=== PATIENT | female | born 1995 | race Caucasian/White ===

== ENCOUNTER 2016-10-22 10:15 | Emergency (ER) | payer SELFPAY ==
[~2016-10-22] VITALS: Ht 152.4 cm; Wt 72.6 kg
[2016-10-22 11:08] VITALS: BP 109/62
[2016-10-22] MEDS ORDERED: LIDOCAINE 2% TOPICAL JELLY 30GM TUBE. TP ONE (12:00)
[2016-10-22] MEDS ORDERED: DIPHTH,PERTUSS(ACELL),TET TOX 0.5 ML DISP.SYRIN. VAX IM ONE (12:00)
[2016-10-22 12:07] LABS: NEG OBC UR NEG; POS OBC UR POS
[2016-10-22 12:08] LABS: BILIRUBIN,URINE NEGATIVE (NEG); GLUCOSE,URINE NEGATIVE (NEG); NITRITE,URINE NEGATIVE (NEG); PH,URINE 5.5; PROTEIN,URINE NEGATIVE (NEG-TRACE); UROBILINOGEN,URINE 0.2 mg/dL (0.2 mg/dL)
[2016-10-22 12:21] LABS: BACTERIA,URINE MOD /HPF (0-FEW); RBC,URINE 0 /HPF (0-2); SQUAMOUS EPITHELIAL CELL,UR MOD /LPF
[2016-10-22] MEDS ORDERED: SULF1TAB24 PO (13:01)
--- NOTE | 2016-10-22 13:01 | PHYS DOC ---
Past Medical History Past Medical History: Kidney Infection, Renal Disease Additional Past Medical Histor: ASD, VSD, tricuspid valve repair Past Surgical History: Other Additional Past Surgical Histo: ASD closure, VSD minimized Alcohol Use: Occasionally Drug Use: Marijuana Adult General Chief Complaint Chief Complaint: VAGINAL PROBLEM HPI HPI Patient is a 21 year old female with history of kidney infection presents today with vaginal itching and irritation that began 2 days ago. Patient is also complaining of a bump on the left armpit that she noted 2 days ago. Patient denies any fever. Denies any chance she is . She states she has some dysuria. Denies any concerns for STD. Review of Systems Review of Systems Constitutional:see HPI Eyes: Denies change in visual acuity, redness, or eye pain [] HENT: Denies nasal congestion or sore throat [] Respiratory: Denies cough or shortness of breath [] Cardiovascular: No additional information not addressed in HPI [] GI: see HPI : vaginal irritation Musculoskeletal: Denies back pain or joint pain [] Integument: pump on left armpit. Neurologic: Denies headache, focal weakness or sensory changes [] Endocrine: Denies polyuria or polydipsia [] Current Medications Current Medications Current Medications Medications (Trade) Dose Ordered Sig/Akshat Start Time Stop Time Status Last Admin Dose Admin Diphtheria/ Tetanus/Acell Pertussis (Boostrix) 0.5 ml ONCE ONCE 10/22/16 12:00 10/22/16 12:07 DC 10/22/16 12:29 0.5 ML Lidocaine HCl (Xylocaine 2% Topical 30gm Tube) 1 nehemiah 1X ONCE 10/22/16 12:00 10/22/16 12:07 DC 10/22/16 12:21 1 NEHEMIAH Allergies Allergies Allergies Coded Allergies Type Severity Reaction Last Updated Verified Penicillins Allergy Unknown 11/15/15 No morphine Allergy Unknown 11/15/15 No Physical Exam Physical Exam Constitutional: Well developed, well nourished, no acute distress, non-toxic appearance. [] HENT: Normocephalic, atraumatic, bilateral external ears normal, oropharynx moist, no oral exudates, nose normal. [] Eyes: PERRLA, EOMI, conjunctiva normal, no discharge. [] Neck: Normal range of motion, no tenderness, supple, no stridor. [] Cardiovascular:Heart rate regular rhythm, no murmur [] Lungs & Thorax: Bilateral breath sounds clear to auscultation [] Abdomen: Bowel sounds normal, soft, no tenderness, no masses, no pulsatile masses. [] Pelvic exam External pelvic with trace erythema. there is no masses noted on the external vaginal area, there is trace amount of white vaginal discharge in the vaginal vault. Cervix is closed, no CMT, no adnexal tenderness. Skin: Left armpit with a tiny hole approximately 0.2 x 0.2 cm with slight cellulitis around it consistent with an ingrown hair. Back: No tenderness, no CVA tenderness. [] Extremities: No tenderness, no cyanosis, no clubbing, ROM intact, no edema. [] Neurologic: Alert and oriented X 3, normal motor function, normal sensory function, no focal deficits noted. [] Psychologic: Affect normal, judgement normal, mood normal. [] Current Patient Data Vital Signs Vital Signs Date Time Temp Pulse Resp B/P Pulse Ox O2 Delivery O2 Flow Rate FiO2 10/22/16 11:08 98.6 98 16 97 Room Air 98.6 Lab Values Laboratory Tests Test 10/22/16 11:05 Urine Collection Type Unknown Urine Color Yellow Urine Clarity Clear Urine pH 5.5 Urine Specific [place] 1.025 Urine Protein Negativemg/dL (NEG-TRACE) Urine Glucose (UA) Negativemg/dL (NEG) Urine Ketones (Stick) Negativemg/dL (NEG) Urine Blood Negative (NEG) Urine Nitrite Negative (NEG) Urine Bilirubin Negative (NEG) Urine Urobilinogen Dipstick 0.2mg/dL (0.2 mg/dL) Urine Leukocyte Esterase Small (NEG) Urine RBC 0/HPF (0-2) Urine WBC 5-10/HPF (0-4) Urine Squamous Epithelial Cells Mod/LPF Urine Bacteria Mod/HPF (0-FEW) Urine Mucus Mod/LPF Urine Test Negative (NEG) Microbiology 10/22/16 Wet Prep - Final, Complete EKG EKG [] Radiology/Procedures Radiology/Procedures [] Course & Med Decision Making Course & Med Decision Making Pertinent Labs and Imaging studies reviewed. (See chart for details) Patient is in the ED with an ingrown hair on the left armpit, the area had slight cellulitis, her urine is contaminated. Negative urine hCG. Wet prep is negative for any acute findings. Discharged with instructions to keep the affected areas clean and dry. We did give her lidocaine jell in the ED to apply to the vaginal area as needed for irritation. Follow-up with her own doctor in 1 -2 weeks. Tammy Disclaimer Tammy Disclaimer This electronic medical record was generated, in whole or in part, using a voice recognition dictation system. Departure Departure Impression: Primary Impression: Cellulitis of axilla, left Additional Impressions: Vaginal irritation Ingrown hair Disposition: HOME, SELF-CARE Condition: STABLE Referrals: NO PCP (PCP) Follow-up with your own doctor in one week Patient Instructions: Cellulitis Additional Instructions: You were seen for cellulitis of the left axilla from ingrown hair. Keep the area clean and dry. Complete your antibiotics. Apply the lidocaine gel provided to the vaginal area for irritation. Follow-up with your own doctor in one week. Your test was negative. Scripts Sulfamethoxazole/Trimethoprim (Bactrim Ds Tablet)1 Each Tablet1 Tab PO BID #20 TAB Prov:TELLY HAMM APRN 10/22/16 Problem Qualifiers TELLY HAMM APRN Oct 22, 2016 13:01
== END 2016-10-22 13:09 | disposition home or self-care (01) ==
LOC: ER 10:15
DX: N89.8 Other specified noninflammatory disorders of vagina (principal); L03.112 Cellulitis of left axilla; L67.9 Hair color and hair shaft abnormality, unspecified; Z88.0 Allergy status to penicillin; Z88.6 Allergy status to analgesic agent; F12.10 Cannabis abuse, uncomplicated; R30.0 Dysuria
CPT/HCPCS: 81001; 81025; 87491; 87591; 90471; 90715; 99284; Q0111

== ENCOUNTER 2022-02-10 15:15 | Emergency (ER) | payer SELFPAY ==
[~2022-02-10] VITALS: Ht 152.4 cm; Wt 90.0 kg
[~2022-02-10 15:15] MED LIST: SULF1TAB24 PO
[2022-02-10 16:21] LABS: BASO # 0.1 x10^3/uL (0.0-0.2); BASO % 1 % (0-3); EOS # 0.2 x10^3/uL (0.0-0.7); EOS % 3 % (0-3); HEMOGLOBIN 13.8 g/dL (12.0-15.5); LYMPH # 1.6 x10^3/uL (1.0-4.8); LYMPH % 19 % (24-48); MEAN CORPUSCULAR HEMOGLOBIN 30 pg (25-35); MEAN CORPUSCULAR HGB CONC 34 g/dL (31-37); MEAN CORPUSCULAR VOLUME 89 fL (79-100); MONO # 0.8 x10^3/uL (0.0-1.1); MONO % 10 % (0-9); NEUT # 5.5 x10^3/uL (1.8-7.7); NEUT % 68 % (31-73); PLATELET COUNT 219 x10^3/uL (140-400); RED BLOOD COUNT 4.61 x10^6/uL (3.50-5.40); RED CELL DISTRIBUTION WIDTH 13.2 % (11.5-14.5); WHITE BLOOD COUNT 8.1 x10^3/uL (4.0-11.0)
[2022-02-10 16:35] LABS: CALCIUM 9.2 mg/dL (8.5-10.1); GFR 67.6; POTASSIUM 4.2 mmol/L (3.5-5.1)
[2022-02-10 16:41] LABS: ALBUMIN 3.9 g/dL (3.4-5.0); ALBUMIN/GLOBULIN RATIO 1.1 (1.0-1.7); MAGNESIUM 2.1 mg/dL (1.8-2.4); TOTAL BILIRUBIN 0.3 mg/dL (0.2-1.0); TOTAL PROTEIN 7.5 g/dL (6.4-8.2)
--- NOTE | 2022-02-10 16:46 | RAD ---
EXAMINATION: XR CHEST 1V CLINICAL HISTORY: LE swelling, hx tricuspid replacement. EXAM DATE/TIME: 02/10/2022 4:32 PM COMPARISON: None FINDINGS: Lines, Tubes, and Devices: None. Cardiomediastinal Silhouette: Normal heart size. Prosthetic tricuspid valve. Lungs and Pleura: No evidence of focal airspace consolidation, pleural effusion, or pneumothorax. Bones and Soft Tissues: No acute osseous abnormality. Median sternotomy. IMPRESSION: No evidence of acute cardiopulmonary abnormality. Electronically signed by: Evaristo Myles DO (02/10/2022 4:44 PM) TERRY
[2022-02-10 16:59] LABS: BACTERIA,URINE MANY /HPF (0-FEW); RBC,URINE 0 /HPF (0-2)
--- NOTE | 2022-02-10 17:10 | PHYS DOC ---
Past Medical History Past Medical History: Kidney Infection, Renal Disease Additional Past Medical Histor: ASD, VSD Past Surgical History: Coronary Bypass Surgery Additional Past Surgical Histo: tricupsid valve replacement Smoking Status: Never Smoker Alcohol Use: None Drug Use: Marijuana General Adult EDM: Chief Complaint: LOWER EXTREMITY SWELLING HPI: HPI: Patient is a 26 year old with past medical history of tricuspid valve replacement who presents with lower extremity swelling. Patient reports the swelling has been intermittent over the past 3 days. She reports she has history of congestive heart failure, which was treated with open heart tricuspid valve replacement last year. Since that surgery, she reports she is intermittently short of breath and has intermittent lower extremity swelling. Patient states she was instructed to elevate her lower extremities for at least 50% of the day, but she has not been compliant with this instruction. She reports she was originally placed on a diuretic after surgery, but it was subsequently discontinued by her english teacher. Patient denies fatigue, chest pain, palpitations, shortness of breath, orthopnea. Review of Systems: Review of Systems: Constitutional: Denies fever, chills or generalized weakness Eyes: Denies change in visual acuity, visual field deficits or discharge HENT: Denies ear pain, nasal congestion or sore throat Respiratory: See HPI Cardiovascular: See HPI GI: Denies abdominal pain, nausea, vomiting, bloody stools or diarrhea : Denies dysuria or hematuria Musculoskeletal: Denies back pain or joint pain Integument: Denies rash or other skin lesion Neurologic: Denies headache, focal weakness or sensory changes Heart Score: C/O Chest Pain: No Allergies: Allergies: Allergies Coded Allergies Type Severity Reaction Last Updated Verified NSAIDS (Non-Steroidal Anti-Inflamma Allergy Unknown 02/10/22 Yes Penicillins Allergy Unknown 11/15/15 No acetaminophen Allergy Unknown 02/10/22 Yes fentanyl Allergy Unknown 02/10/22 Yes morphine Allergy Unknown 11/15/15 No Physical Exam: PE: Constitutional: Well developed, well nourished, no acute distress, non-toxic appearance. HENT: Normocephalic, atraumatic, bilateral external ears normal, nose normal. Eyes: EOMI, conjunctiva normal, no discharge. Neck: Normal range of motion, no stridor, no JVD. Cardiovascular: Heart regular rate and rhythm. Lungs & Thorax: Equal thoracic expansion, no increased work of breathing, breath sounds clear to auscultation in all lung guo. Skin: Warm, dry, no erythema, no rash. Extremities: No tenderness, no cyanosis, no clubbing, ROM intact, trace edema bilateral ankles. Neurologic: Alert and oriented x4, normal motor function, normal sensory function, no focal deficits noted. Current Patient Data: Labs: Laboratory Tests Test 02/10/22 16:15 02/10/22 16:40 White Blood Count 8.1 x10^3/uL (4.0-11.0) Red Blood Count 4.61 x10^6/uL (3.50-5.40) Hemoglobin 13.8 g/dL (12.0-15.5) Hematocrit 41.0 % (36.0-47.0) Mean Corpuscular Volume 89 fL (79-100) Mean Corpuscular Hemoglobin 30 pg (25-35) Mean Corpuscular Hemoglobin Concent 34 g/dL (31-37) Red Cell Distribution Width 13.2 % (11.5-14.5) Platelet Count 219 x10^3/uL (140-400) Neutrophils (%) (Auto) 68 % (31-73) Lymphocytes (%) (Auto) 19 % (24-48) Monocytes (%) (Auto) 10 % (0-9) Eosinophils (%) (Auto) 3 % (0-3) Basophils (%) (Auto) 1 % (0-3) Neutrophils # (Auto) 5.5 x10^3/uL (1.8-7.7) Lymphocytes # (Auto) 1.6 x10^3/uL (1.0-4.8) Monocytes # (Auto) 0.8 x10^3/uL (0.0-1.1) Eosinophils # (Auto) 0.2 x10^3/uL (0.0-0.7) Basophils # (Auto) 0.1 x10^3/uL (0.0-0.2) Sodium Level 144 mmol/L (136-145) Potassium Level 4.2 mmol/L (3.5-5.1) Chloride Level 107 mmol/L (98-107) Carbon Dioxide Level 25 mmol/L (21-32) Anion Gap 12 (6-14) Blood Urea Nitrogen 14 mg/dL (7-20) Creatinine 1.0 mg/dL (0.6-1.0) Estimated GFR (Cockcroft-Gault) 67.6 BUN/Creatinine Ratio 14 (6-20) Glucose Level 90 mg/dL (70-99) Calcium Level 9.2 mg/dL (8.5-10.1) Magnesium Level 2.1 mg/dL (1.8-2.4) Total Bilirubin 0.3 mg/dL (0.2-1.0) Aspartate Amino Transf (AST/SGOT) 16 U/L (15-37) Alanine Aminotransferase (ALT/SGPT) 31 U/L (14-59) Alkaline Phosphatase 91 U/L (46-116) Troponin I High Sensitivity 4 ng/L (4-50) CP-Ijq-G-Type Natriuretic Peptide 208 pg/mL (0-124) Total Protein 7.5 g/dL (6.4-8.2) Albumin 3.9 g/dL (3.4-5.0) Albumin/Globulin Ratio 1.1 (1.0-1.7) Urine Collection Type Unknown Urine Color (Auto) Yellow Urine Turbidity Hazy Urine pH (Auto) 5.0 (<5.0-8.0) Urine Specific [place] 1.027 (1.000-1.030) Urine Protein (Auto) Negative mg/dL (Negative) Urine Glucose (Auto)(UA) Negative mg/dL (Negative) Urine Ketones (Auto) Negative mg/dL (Negative) Urine Blood (Auto) Negative (Negative) Urine Nitrite Negative (Negative) Urine Bilirubin (Auto) Negative (Negative) Urine Urobilinogen (Auto) Normal mg/dL (Normal) Urine Leukocyte Esterase (Auto) Moderate (Negative) Urine RBC 0 /HPF (0-2) Urine WBC 5-10 /HPF (0-4) Urine Squamous Epithelial Cells Few /LPF Urine Bacteria Many /HPF (0-FEW) Urine Mucus Mod /LPF Laboratory Tests 02/10/22 16:15 Laboratory Tests 02/10/22 16:15 Vital Signs: Vital Signs Date Time Temp Pulse Resp B/P (MAP) Pulse Ox O2 Delivery O2 Flow Rate FiO2 02/10/22 15:57 98.0 100 20 126/70 (88) 98 98.0 EKG: EKG: EKG Interpreted by Dr. Pearl at 1808: Regular rate and rhythm 92 bpm with no ectopic beats. QT 356 ms/QTc 445 ms. No STEMI. Radiology/Procedures: Radiology/Procedures: PROCEDURE: PORTABLE CHEST 1V EXAMINATION: XR CHEST 1V CLINICAL HISTORY: LE swelling, hx tricuspid replacement. EXAM DATE/TIME: 02/10/2022 4:32 PM COMPARISON: None FINDINGS: Lines, Tubes, and Devices: None. Cardiomediastinal Silhouette: Normal heart size. Prosthetic tricuspid valve. Lungs and Pleura: No evidence of focal airspace consolidation, pleural effusion, or pneumothorax. Bones and Soft Tissues: No acute osseous abnormality. Median sternotomy. IMPRESSION: No evidence of acute cardiopulmonary abnormality. Electronically signed by: Evaristo Myles DO (02/10/2022 4:44 PM) [facility] Course & Med Decision Making: Course & Med Decision Making Pertinent Labs and Imaging studies reviewed. (See chart for details) Patient is a 26-year-old female with lower extremity swelling and a history of tricuspid valve replacement. Work-up today will consist of labs that include BNP, chest x-ray, urinalysis. Work-up thus far unremarkable. And informing patient of these findings, she reports additional intermittent chest pain, which is not active today over the past few days. EKG and troponin were added to work-up, both of which were also unremarkable. Patient does not follow with the english teacher who performed her surgery anymore. She was provided with contact information for the cardiology group here at [facility]. Patient was instructed to adhere to instruction from her prior english teacher to prevent lower extremity swelling. Return precautions were also provided. Patient understands and is agreeable to discharge plan. Tammy Disclaimer: Tammy Disclaimer: This electronic medical record was generated, in whole or in part, using a voice recognition dictation system. Departure Departure Impression: Primary Impression: Swelling of both lower extremities Additional Impression: Hx of tricuspid valve replacement Disposition: HOME / SELF CARE / HOMELESS Condition: STABLE Referrals: NO PCP (PCP) MIKALA VENTURA MD Patient Instructions: Edema, [id number] Additional Instructions: EMERGENCY DEPARTMENT GENERAL DISCHARGE INSTRUCTIONS Thank you for coming to [facility] Emergency Department (ED) today and trusting us with you care. We trust that you had a positive experience in our Emergency Department. If you wish to speak to the department management, you may call the director at . YOUR FOLLOW UP INSTRUCTIONS ARE FOLLOWS: 1. Follow up with your primary care doctor. If you do not have a primary doctor, please ask for a resource list of physicians or clinics that may be able to assist you with follow up care. 2. The emergency provider has interpreted your imaging studies, if any were ordered. The radiology electronic imaging system operator also reviewed them. If there is a change in the findings, you will be notified in 48 hours when at all possible. 3. If a lab test or culture has been done, your results will be reviewed and you will be notified if you need a change in treatment. 4. Follow instructions verbalized to you and refer to the printouts if needed. ADDITIONAL INSTRUCTIONS AND INFORMATION: 1. Your care today has been supervised by a physician who is specially trained in emergency care. Many problems require more than one evaluation for a complete diagnosis and treatment. We recommend that you schedule your follow up appointment as recommended to ensure complete treatment of you illness or injury. If you are unable to obtain follow up care and continue to have a problem, or if your condition worsens, we recommend that you return to the ED. 2. We are not able to safely determine your condition over the phone nor are we able to give sound medical advice over the phone. For these safety reasons, if you call for medical advice we will ask you to come to the ED for further evaluation. 3. If you have any questions regarding these discharge instructions please call the ED at . SAFETY INFORMATION: In the interest of safety, wellness, and injury prevention; we encourage you to wear your seat belt, if you smoke; quite smoking, and we encourage family to use a protective helmet for bicycling and other sporting events that present an increased risk for head injury. IF YOUR SYMPTOMS WORSEN OR NEW SYMPTOMS DEVELOP, OR YOU HAVE CONCERNS ABOUT YOUR CONDITION; OR IF YOUR CONDITION WORSENS WHILE YOU ARE WAITING FOR YOUR FOLLOW UP APPOINTMENT; EITHER CONTACT YOUR PRIMARY CARE DOCTOR, THE PHYSICIAN WHOSE NAME AND NUMBER YOU WERE GIVEN, OR RETURN TO THE ED IMMEDIATELY. JERICHO ELLINGTON February 10, 2022 17:10
[2022-02-10 18:45] VITALS: BP 136/66
--- NOTE | 2022-02-12 06:18 | EKG ---
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
== END 2022-02-10 18:47 | disposition home or self-care (01) ==
LOC: ER 15:15
DX: R22.43 Localized swelling, mass and lump, lower limb, bilateral (principal); Z95.1 Presence of aortocoronary bypass graft; Z86.79 Personal history of other diseases of the circulatory system
CPT/HCPCS: 36415; 71045; 80053; 81001; 83735; 83880; 84484; 85025; 87086; 93005; 99285-25